=== PATIENT | male | born 1960 | race Caucasian/White ===

== ENCOUNTER 2018-08-12 21:40 | Emergency (ER) | payer OTHER ==
[~2018-08-12] VITALS: Ht 177.8 cm; Wt 93.0 kg
[~2018-08-12 21:40] MED LIST: AMLODIPINE BESY1 TAB PO; OMEPRAZOLE40 MG PO; QUINAPRIL10 M1 PO; SIMVASTATIN40 MG PO
== END 2018-08-12 23:41 | disposition home or self-care (01) ==
LOC: ED 21:40
DX: T18.128A Food in esophagus causing other injury, initial encounter (principal); Z79.899 Other long term (current) drug therapy; X58.XXXA Exposure to other specified factors, initial encounter; Y93.89 Activity, other specified; Y92.098 Other place in other non-institutional residence as the place of occurrence of the external cause; Y99.8 Other external cause status